=== PATIENT | female | born 1995 | race Hispanic/Latino ===

== ENCOUNTER → 2020-12-05 09:16 | Outpatient (CLI) | payer OTHER, SELFPAY ==
[2020-12-05 10:33] LABS: Appearance Urine UA SL CLOUDY; Bilirubin Urine UA NEGATIVE (NEGATIVE); Color Urine UA YELLOW; Glucose Urine UA NEGATIVE (Negative); Ketones Urine UA NEGATIVE (NEGATIVE); Leukocyte Esterase Urine UA TRACE (NEGATIVE); Nitrite Urine UA NEGATIVE (Negative); Occult Blood Urine UA NEGATIVE (Negative); Protein Urine UA NEGATIVE (Negative); Specific Gravity Urine UA >=1.030 (1.000-1.035); Urobilinogen Urine UA 0.2 E.U./dL (0.2)
[2020-12-05 10:39] LABS: Add Manual Diff / Slide Review NO; Basophils Absolute Auto 0 /uL (0-100); Basophils Percent Auto 0.4 % (0-2); Eosinophils Absolute Auto 100 /uL (0-450); Eosinophils Percent Auto 0.7 % (2-4); Hemoglobin 13.2 g/dL (12.0-16.0); Lymphocytes Absolute Auto 2300 /uL (1100-4500); Mean Corpuscular HGB Conc 33.1 % (30-36); Mean Corpuscular Hemoglobin 29.8 PG (26-34); Monocytes Absolute Auto 500 /uL (0-900); Monocytes Percent Auto 5.4 % (3-14); Neutrophils Absolute Auto 5700 /uL (1500-7000); Neutrophils Percent Auto 66.5 % (50-75); Platelet Count 377 X10^3/uL (150-400); Red Blood Cell Count 4.45 X10^6/uL (4.0-5.2); Red Cell Distribution Width 13.1 % (11.6-14.8); White Blood Cell Count 8.6 X10^3/uL (4.5-11.0)
[2020-12-05 10:49] LABS: Bacteria Urine Moderate (10-30); RBC Urine 0-1/HPF (0-5/HPF); Squamous Epithelial Cell Urine 1-5 /HPF (0-5/HPF); WBC Urine 1-5/HPF (0-5/HPF)
[2020-12-05 10:50] LABS: Mucus Urine 2+ (Negative)
[2020-12-05 11:13] LABS: Hepatitis B Surface Antigen NEGATIVE s/c (NEGATIVE); Rubella Antibody IgG 4.4 IU/mL (>15)
[2020-12-05 11:28] LABS: HIV 1 & 2 Ab/Ag 4th Gen Combo NEGATIVE (NEGATIVE); Hep C Virus Ab w/Reflex Quant NEGATIVE s/c (NEGATIVE)
[2020-12-06 07:47] LABS: RPR Screen Non Reactive (Non Reactive)
[2020-12-06 08:12] LABS: Varicella IgG Antibody <135 index (Immune >165)
== END ==
PROVIDERS: PCP Family Medicine; Referring Provider Family Medicine; Visit Provider Family Medicine
DX: Z34.01 Encounter for supervision of normal first pregnancy, first trimester (principal)
CPT/HCPCS: 36415; 80055; 81003; 81015; 86787; 86803; 86850; 86900; 86901; 87086; 87389

== ENCOUNTER → 2020-12-16 13:49 | Outpatient (CLI) | payer OTHER, SELFPAY ==
--- NOTE | 2020-12-16 13:50 | DI.RAD.S_ITS ---
PROCEDURE: XR WRIST LT MIN 3V INDICATIONS: pain and swelling TECHNIQUE: 4 views of the wrist were acquired. COMPARISON: None. FINDINGS: Bones: No fractures or dislocations. No suspicious bony lesions. Scaphoid view: No trauma Soft tissues: No suspicious soft tissue calcifications. IMPRESSION: No trauma found. Source of pain and swelling is not seen. Dictated by: Darell Worrell M.D. on 12/16/2020 at 15:30 Approved by: Darell Worrell M.D. on 12/16/2020 at 15:31
== END ==
PROVIDERS: PCP Family Medicine; Referring Provider Family Medicine; Visit Provider Family Medicine
DX: M25.9 Joint disorder, unspecified (principal); M25.532 Pain in left wrist; M25.432 Effusion, left wrist
CPT/HCPCS: 73110

== ENCOUNTER → 2021-02-27 09:25 | Outpatient (CLI) | payer OTHER, SELFPAY ==
[2021-03-02 17:07] LABS: AFP, Serum 39.3 ng/mL (.); Calc Gestational Age Ultrasound (.); Estriol, Free 2.28 ng/mL (.); Inhibin A, Dimeric 93.85 pg/mL (.); Inhibin A, MoM 0.61 (.); Maternal Ethnicity Other (.); Maternal Weight 154 lbs (.); Number of Fetuses No (.); OSBR Risk 1 IN 10000 (.); Results Report (.); Test Results *Screen Negative* (.); hCG, MoM 0.74 (.)
== END ==
PROVIDERS: PCP Family Medicine; Referring Provider Family Medicine; Visit Provider Family Medicine
DX: Z34.90 Encounter for supervision of normal pregnancy, unspecified, unspecified trimester (principal); Z3A.18 18 weeks gestation of pregnancy
CPT/HCPCS: 36415; 82105; 82677; 84702; 86336

== ENCOUNTER → 2021-03-13 10:40 | Outpatient (CLI) | payer OTHER, SELFPAY ==
--- NOTE | 2021-03-13 10:42 | DI.US.S_ITS ---
PROCEDURE: US OB >= 14 WEEKS FETUS INDICATIONS: ANATOMY OUTSIDE/PRIOR DATING DATA: Last menstrual period (LMP): Unknown . LMP-based estimated date of delivery (REKHA): Unknown . First dating scan (date and location): 03/13/2021 . Estimated date of delivery (REKHA) from first dating scan: 07/29/2021 . TECHNIQUE: Real-time scanning was performed of the fetus, with image documentation and biometric measurements. Endovaginal scanning: Non COMPARISON: None. FINDINGS: General: A single living intrauterine gestation is present. Presentation: Breech. Placenta: Placental position is anterior , without previa. Amniotic fluid index: 14.9 cm, normal range is 5-24 cm. heart rate: 158 beats per minute. Maternal cervical canal: 4.8 cm long. Normal lower limit is 2.5 cm. biometrics: Biparietal diameter: 4.8 cm, 20 week 3 day Head circumference: 17.7 cm, 20 week 1 day Abdominal circumference: 15.7 cm, 20 week 6 day Femur length: 3.2 cm, 19 week 6 day Estimated gestational age from initial scan: not applicable. Composite gestational age from present scan: 20 week 2 day Estimated weight and percentile: 352 g Measurement variability for biometric dating: +/- 7 days from 14 weeks to 15 weeks 6 days gestation, +/- 10 days from 16 weeks to 21 weeks 6 days gestation, +/- 2 weeks from 22 weeks to 27 weeks 6 days gestation, +/- 3 weeks for 28 weeks gestation or later. weight reference: 4500 g or EFW >90/95% is considered macrosomia or large for gestational age. EFW <10% is small for gestational age. EFW 5% or less is considered intra-uterine growth restriction. Anatomic survey: Neuro: Ventricles are non-dilated at less than 10 mm. Cisterna magna is normal at 3-11 mm. Cerebellum is normal in size and morphology. Nuchal skin fold: Normal at less than 6 mm between 14-21 weeks gestational age. Face: Nose and lips, facial profile are normal. Spine: No evidence for spina bifida. Sacrum is not well visualized Heart: 4-chambered heart is present, with normal ventricular outflow tracts. Diaphragm: Diaphragm is intact. Stomach: Left-sided stomach is present. Kidneys: No hydronephrosis. Normal is less than 5 mm in 2nd trimester, less than 7 mm in 3rd trimester. Cord: 3-vessel cord has orthotopic insertion. Bladder: Normal in size. Extremities: All 4 extremities identified. IMPRESSION: Single live intrauterine in breech presentation corresponding with a 20 week 2 day gestation by ultrasound Sacrum is not well visualized due to positioning. Attention to the sacrum will be given on follow-up scans. Approved by: Obey Issa M.D. on 03/13/2021 at 12:43
== END ==
PROVIDERS: PCP Family Medicine; Referring Provider Family Medicine; Visit Provider Family Medicine
DX: Z34.92 Encounter for supervision of normal pregnancy, unspecified, second trimester (principal); Z3A.20 20 weeks gestation of pregnancy
CPT/HCPCS: 76811

== ENCOUNTER → 2021-04-06 10:40 | Outpatient (CLI) | payer OTHER, SELFPAY ==
--- NOTE | 2021-04-06 10:41 | DI.US.S_ITS ---
PROCEDURE: US OB FOLLOW UP INDICATIONS: RE-EVALUATE SACRAL SPINE OUTSIDE/PRIOR DATING DATA: First dating scan (date and location): 03/13/2021 . Estimated date of delivery (REKHA) from first dating scan: 07/29/2021 . TECHNIQUE: Real-time scanning was performed of the fetus, with image documentation and biometric measurements. Endovaginal scanning: No COMPARISON: [facility], OB >= 14 WEEKS FETUS, 03/13/2021, 10:50. FINDINGS: General: A single living intrauterine gestation is present. Presentation: Vertex. Placenta: Placental position is anterior , without previa. Amniotic fluid index: 16.2 cm, normal range is 5-24 cm. heart rate: 169 beats per minute. Maternal cervical canal: 3.7 cm long. Normal lower limit is 2.5 cm. Normal sacrum. IMPRESSION: Single living IUP redemonstrated demonstrating normal appearance of the sacrum. Dictated by: Ryley Whalen [place] Interpreted: Felecia Valle MD on 04/06/2021 at 11:28 Transcribed by: KARLOS on 04/06/2021 at 11:29 Approved by: Felecia Valle M.D. on 04/06/2021 at 12:39
== END ==
PROVIDERS: PCP Family Medicine; Referring Provider Family Medicine; Visit Provider Family Medicine
DX: Z34.90 Encounter for supervision of normal pregnancy, unspecified, unspecified trimester (principal)
CPT/HCPCS: 76816

== ENCOUNTER → 2021-05-12 08:12 | Outpatient (CLI) | payer OTHER, SELFPAY ==
[2021-05-12 09:56] LABS: Add Manual Diff / Slide Review NO; Basophils Absolute Auto 0 /uL (0-100); Basophils Percent Auto 0.1 % (0-2); Eosinophils Absolute Auto 200 /uL (0-450); Eosinophils Percent Auto 1.8 % (2-4); Hematocrit 30.4 % (36-46); Lymphocytes Absolute Auto 1500 /uL (1100-4500); Lymphocytes Percent Auto 15.9 % (25-40); Mean Corpuscular Hemoglobin 29.2 PG (26-34); Mean Corpuscular Volume 88.4 fL (80-100); Monocytes Absolute Auto 500 /uL (0-900); Neutrophils Absolute Auto 7200 /uL (1500-7000); Neutrophils Percent Auto 77.2 % (50-75); Platelet Count 310 X10^3/uL (150-400); Red Blood Cell Count 3.43 X10^6/uL (4.0-5.2); Red Cell Distribution Width 13.6 % (11.6-14.8); White Blood Cell Count 9.4 X10^3/uL (4.5-11.0)
[2021-05-12 10:12] LABS: GTT (PREG) 1 Hour PP 50gm Dose 138 mg/dL (76-139)
== END ==
PROVIDERS: PCP Family Medicine; Referring Provider Family Medicine; Visit Provider Family Medicine
DX: Z34.90 Encounter for supervision of normal pregnancy, unspecified, unspecified trimester (principal); Z3A.24 24 weeks gestation of pregnancy
CPT/HCPCS: 36415; 82950; 85025

== ENCOUNTER → 2021-07-03 09:01 | Outpatient (CLI) | payer OTHER, SELFPAY ==
[2021-07-05 14:51] LABS: Strep Grp B PCR NEG for Grp B Strep
== END ==
PROVIDERS: PCP Family Medicine; Visit Provider Family Medicine
DX: Z34.90 Encounter for supervision of normal pregnancy, unspecified, unspecified trimester (principal); Z3A.36 36 weeks gestation of pregnancy
CPT/HCPCS: 87653

== ENCOUNTER 2021-07-11 22:34 | Outpatient (CLI) | payer OTHER, SELFPAY ==
--- NOTE | 2021-07-12 13:32 | P.TNLD_ITS ---
Visit Information Visit Information Date of evaluation: 07/11/21 Primary OB Provider: Bri Angel On-call OB Provider: Belen Kline Reason for Evaluation: Yes rule out labor Vital Signs Vital Signs: BP 113/73, P 106, T 37.1 [facility] Medical History (Updated 07/12/21 @ 13:37 by Belen Kline MD) Bunion of great toe of left foot Bunion of great toe of right foot Cystic disease of breast Family history of diabetes mellitus in father Migraine Ovarian cyst (~2016) Vitiligo Surgical History (Updated 11/26/20 @ 10:58 by Tea Otero, RN) H/O breast biopsy (~2012) S/P breast biopsy (~2014) S/P bunionectomy (~2010) S/P bunionectomy (~2011) S/P bunionectomy (~2013) S/P laparoscopy (~2016) [place] teeth extracted (~2008) Family History (Updated 11/26/20 @ 11:24 by Tea Otero, RN) Mother Cystic disease of breast Hypertension Father Diabetes mellitus Type 1 diabetes Grandmother Cancer Breast cancer Grandfather Cancer Lung cancer Smoker Grandmother Diabetes mellitus Grandfather Family estrangement Sister Learning disabilities Family/Other Cancer Breast cancer Social History marital status: household members: spouse lives independently: Yes pets and animals: Yes (X 1 dog) education level: college (X 1 year of College in [place] : [employer]) occupational status: employed current occupational exposures/hazards: Yes Previous occupational history: [employer] special ha needs: No Smoking Status: Never smoker second hand exposure: No alcohol intake: former (pre- : on occasion) substance use type: does not use Type(s) of exercise: walking Review of Systems Review of Systems Narrative: Pt. c/o contractions, GFM, no leakage of fluid, no S/S preeclampsia Evaluation Evaluation Baseline heart rate: 145 Variability: Moderate (11-25) monitor accelerations: Present Monitor Decelerations: Absent Contraction Frequency (minutes): 5 Uterine Contraction Intensity: Mild Category of Tracing: Reactive Status: Category l Cervical dilation (cm): 1 Cervical effacement (%): 50 station: -3 Diagnosis, Plan/Disposition Final Diagnosis (1) False labor after 37 completed weeks of gestation: Status: Acute Plan/Disposition Plan: Pt sent home. Precautions for return reviewed OB Disposition: home
== END 2021-07-12 00:06 | disposition home or self-care (01) ==
LOC: LABOR 22:40 → OB 07-13 09:46
PROVIDERS: PCP Family Medicine; Referring Provider Specialist; Visit Provider Specialist
DX: O47.1 False labor at or after 37 completed weeks of gestation (principal); Z3A.37 37 weeks gestation of pregnancy
CPT/HCPCS: 59025; G0378; G0379

== ENCOUNTER 2021-07-30 10:01 | Inpatient (IN) | payer OTHER, SELFPAY ==
--- NOTE | 2021-07-30 10:36 | PM.OBHP.IH.1 ---
OB HPI Date/Time Date of admission: 07/30/21 Date Patient Seen: 07/30/21 Time Patient Seen: 10:36 History of Present Condition Chief complaint: INDUCTION REKHA Calculator Estimated Delivery Date Method Current WG Current Estimate 07/30/21 Ultrasound #1 40w 0d Other Estimates 07/16/21 LMP (Certain) 42w 0d Estimated Gestational Age (weeks): 40w0d : 1 Para: 0 Narrative: Pt is a 25yo at 40w0d here for elective IOL. Pt has been having regular contractions at home. She denies any vaginal bleeding or LOF. She is feeling her baby move regularly. The pt has had no complications with her . care: good care, initiated at week # and pounds weight gain Dating criteria OB: based on 1st trimester US only Ultrasounds: normal 1st trimester US and normal mid trimester US Obstetrical complications: none Medical complications OB: none Indications Indication for induction OB: maternal discomfort Preadmission Labs Last OB Lab Results: Blood Type O Positive 07/30/21 10:07/30/21 Antibody Screen Negative 07/30/21 10:07/30/21 Hematocrit 33.0 % (36-46) L 07/30/21 10:09 07/30/21 Hemoglobin 10.8 g/dL (12.0-16.0) L 07/30/21 10:09 07/30/21 Hepatitis B Surface Antigen Negative s/c (NEGATIVE) 12/05/20 09:25 12/05/20 Hepatitis C Antibody Negative s/c (NEGATIVE) 12/05/20 09:25 12/05/20 Rubella Antibody 4.4 IU/mL (>15) L 12/05/20 09:25 12/05/20 Varicella-Zoster IgG Antibody <135 index (Immune >165) L 12/05/20 09:25 12/05/20 Glucose 1 Hour 138 mg/dL (76-139) 05/12/21 09:25 05/12/21 Group B Streptococcus (PCR) Neg for grp b strep 07/03/21 09:01 07/03/21 -: Urine: negative Genetic Screens: Quad screen: Normal External Labs -: Urine: negative Evaluation Evaluation Baseline heart rate: 130 Variability: Moderate (11-25) monitor accelerations: Present Monitor Decelerations: Absent Contraction Frequency (minutes): 6 Status: Category l Dilation (cm): 3 Effacement (%): 90 Dilation: 3-4 cm Effacement: >/=80% station: -1 Position of cervix: mid Consistency: soft Dickson score: 10 PFSH Medical History (Updated 07/15/21 @ 16:30 by Bri Angel MD) Bunion of great toe of left foot Bunion of great toe of right foot Cystic disease of breast Family history of diabetes mellitus in father Migraine Ovarian cyst (~2016) Vitiligo Surgical History (Updated 11/26/20 @ 10:58 by Tea Otero RN) H/O breast biopsy (~2012) S/P breast biopsy (~2014) S/P bunionectomy (~2010) S/P bunionectomy (~2011) S/P bunionectomy (~2013) S/P laparoscopy (~2016) [place] teeth extracted (~2008) Family History (Updated 11/26/20 @ 11:24 by Tea Otero RN) Mother Cystic disease of breast Hypertension Father Diabetes mellitus Type 1 diabetes Grandmother Cancer Breast cancer Grandfather Cancer Lung cancer Smoker Grandmother Diabetes mellitus Grandfather Family estrangement Sister Learning disabilities Family/Other Cancer Breast cancer Social History marital status: household members: spouse lives independently: Yes pets and animals: Yes (X 1 dog) education level: college (X 1 year of College in [place] : [employer]) occupational status: employed current occupational exposures/hazards: Yes Previous occupational history: [employer]; [employer] special ha needs: No Smoking Status: Former smoker second hand exposure: No alcohol intake: former (pre- : on occasion) substance use type: does not use Type(s) of exercise: walking Meds Home Medications and Allergies Home Medications Medication Instructions Recorded Confirmed Type prenat.vits,patricia,fqu-jllj-jnkyw 1 tab PO DAILY 11/26/20 01/02/21 History ondansetron 4 mg disintegrating 4 mg PO Q8H PRN #30 tab 06/05/21 06/05/21 Rx tablet Allergies Allergy/AdvReac Type Severity Reaction Status Date / Time No Known Drug Allergies Allergy Verified 01/02/21 08:24 OB Exam Narrative Exam Narrative: Gen: NAD, sitting comfortably in bed, appears well CV: RRR, no murmurs Resp: clear to auscultation bilaterally Abd: soft, nontender, gravid Ext: trace edema Objective Labs Result Diagrams: 07/30/21 10:09 Assessment and Plan Assessment and Plan Assessment and Plan narrative: 25yo at 40w0d here for elective IOL. uncomplicated. GBS negative, Rh positive. - Expectant management, anticipate - FHT reassuring - GBS negative, no prophylaxis indicated - Epidural for pain control when desired - Start pitocin, titrate as tolerated
[2021-07-30 10:59] LABS: Add Manual Diff / Slide Review NO; Basophils Absolute Auto 100 /uL (0-100); Basophils Percent Auto 0.8 % (0-2); Eosinophils Absolute Auto 100 /uL (0-450); Eosinophils Percent Auto 0.5 % (2-4); Hemoglobin 10.8 g/dL (12.0-16.0); Lymphocytes Absolute Auto 1700 /uL (1100-4500); Lymphocytes Percent Auto 16.7 % (25-40); Mean Corpuscular HGB Conc 32.6 % (30-36); Mean Corpuscular Hemoglobin 28.3 PG (26-34); Mean Corpuscular Volume 86.7 fL (80-100); Monocytes Absolute Auto 600 /uL (0-900); Monocytes Percent Auto 6.3 % (3-14); Neutrophils Absolute Auto 7700 /uL (1500-7000); Neutrophils Percent Auto 75.7 % (50-75); Platelet Count 292 X10^3/uL (150-400); Red Blood Cell Count 3.81 X10^6/uL (4.0-5.2); Red Cell Distribution Width 15.7 % (11.6-14.8); White Blood Cell Count 10.2 X10^3/uL (4.5-11.0)
[2021-07-30] MEDS: LACTATED RINGERS 1,000 ML 100 ML IV ×2 (11:02→13:49)
[2021-07-30] MEDS: OXYTOCIN PREMIX 30 UNIT/500 ML PLAST..BAG IV (11:03)
[2021-07-30 11:13] LABS: COVID19 -Nasal RAPID Negative (Negative)
[2021-07-30 11:26] VITALS: BP 126/63
[2021-07-30] MEDS: FENT 2MCG/ML BUPIV 0.125% EPI 200 MCG/100 ML PLAST..BAG 12 MCG EPIDURAL (13:49)
--- NOTE | 2021-07-30 16:28 | P.PCNOB_ITS ---
Labor & Delivery Delivery date: 07/30/21 Intrapartal Events: None Cervical ripening method: none Induction method: per pitocin protocol Delivery augmentation: rupture of membranes Delivery monitor: external FHT Route of delivery: Episiotomy description: None L&D Laceration Description: None Estimated blood loss (mL): 50 Anesthesia Type: Epidural Complications: None Narrative: at 40w0d presented for elective IOL and was admitted to Labor and Delivery. The patient progressed through the 1st stage over 1.5 hours. She was started on pitocin for induction. Pain was controlled with an epidural. AROM was performed with production of meconium-stained fluid. The patient progressed through the 2nd stage over 1 hours and delivered a viable male with APGARs 9/9 at 16:02 via without complications. The baby cried spontaneously immediately after . The cord was clamped and cut after it stopped pulsating. The perineum and vagina were inspected with no lacerations. PREPROCEDURE DIAGNOSIS: Intrauterine at 40w0d GBS negative RH positive Meconium stained amniotic fluid POSTPROCEDURE DIAGNOSIS: Intrauterine at 40w0d, delivered Same as preprocedure [place] Baby 1: Infant gender: Male Presentation: vertex Position: Left Occiput Anterior Placenta delivery description: Spontaneous Cord Vessel Description: 3 Vessels score (1 min): 9 score (5 min): 9 weight: 6 lb 10.069 oz Plan for aftercare: Routine care
[2021-07-30] MEDS: IBUPROFEN 600 MG TABLET PO (21:54)
[2021-07-30] MEDS: ACETAMINOPHEN 325 MG TABLET 650 MG PO (21:54)
[2021-07-30] MEDS: LANOLIN OINT 7 GM 1 APPLIC TOP (21:56)
[2021-07-31] MEDS: DOCUSATE 100 MG CAPSULE PO (09:20)
[2021-07-31] MEDS: PRENATAL VIT,CALC/IRON/FOLIC 1 TABLET 1 TAB PO (09:20)
[2021-07-31] MEDS: OXYCODONE IR 5 MG TABLET PO ×2 (09:20→20:24)
[2021-07-31] MEDS: FERROUS SULFATE 325 MG TABLET PO (09:21)
[2021-07-31] MEDS: MAGNESIUM HYDROXIDE 30 ML UDC PO (11:56)
[2021-07-31] MEDS: IBUPROFEN 600 MG TABLET PO ×2 (13:47→20:24)
[2021-07-31] MEDS: ACETAMINOPHEN 325 MG TABLET 650 MG PO ×2 (13:48→20:24)
[2021-08-01] MEDS: ACETAMINOPHEN 325 MG TABLET 650 MG PO (03:57)
[2021-08-01] MEDS: OXYCODONE IR 5 MG TABLET PO (03:57)
[2021-08-01] MEDS: IBUPROFEN 600 MG TABLET PO (03:57)
--- NOTE | 2021-08-01 09:10 | PM.OBPN.1 ---
Subjective - OB Subjective Date Patient Seen: 07/31/21 Time Patient Seen: 07:50 Interval history: The pt reports that she is having increased perineal discomfort and frontal headache this morning. No vision changes, RUQ pain, or increased swelling. Her lochia is decreasing appropriately. She has voided, but is not yet passing flatus. Exam Narrative Exam Narrative: Gen: NAD, sitting comfortably in bed, appears well CV: RRR, no murmurs Resp: clear to auscultation bilaterally Abd: soft, slightly distended, normoactive bowel sounds, fundus firm and below umbilicus, nontender Ext: no edema Objective Labs Result Diagrams: 07/30/21 10:09 Assessment & Plan Plan Comments: 25yo PPD #1 s/p without complications. Pt doing well overall. - Normal care - Encouraged ambulation - support Time Spent With Patient Time: Total time spent is greater than 50% in coordination of care (as documented) at patient's floor/unit and/or counseling patient: Time with patient: 15-24 minutes
--- NOTE | 2021-08-01 09:10 | PM.OBDS.1 ---
Discharge Providers Provider Date of admission: 07/30/21 10:01 Discharge Date: 08/01/21 Primary care physician: Damon Wagoner DO Consults: 07/31/21 16:31 Consult to Still Photographer Routine Comment: Discharge provider: Bri Angel MD Summary Hospital Course Date Patient Seen: 08/01/21 Time Patient Seen: 09:00 Diagnoses: 40w0d gestation Rh positive GBS negative Hospital Course: The pt presented for elective IOL. She was started on pitocin, and received an epidural for pain control. AROM was performed with production of meconium-stained fluid. She progressed to complete and had a spontaneous vaginal delivery of a viable baby boy on 07/30/21. , there were no complications. At the time of discharge she as voiding, ambulating, and passing flatus without difficulty. Her lochia was decreasing appropriately. She was with adequate latch with the nipple shield, and pumping as well. Her pain was well controlled. She will f/u in 6 weeks for check. She is undecided regarding contraception. Peripartum Data Delivery Method: Natural Vaginal Laceration Description: None Episiotomy description: None Procedures: Spontaneous vaginal delivery complications: none [place] 1: Gender: Male Disposition of : home Discharge Diagnosis (1) Spontaneous vaginal delivery: Status: Acute Status at Discharge Cognitive/behavioral status at discharge: oriented Functional status at discharge: independent ambulation Overall status at discharge: patient is progressing back to baseline Time Spent with Patient Time attestation: Total time spent providing and/or coordinating discharge services: Objective Labs Result Diagrams: 07/30/21 10:09 Exam Narrative Exam Narrative: Gen: NAD, sitting comfortably in bed, appears well CV: RRR, no murmurs Resp: clear to auscultation bilaterally Abd: soft, appropriately tender, fundus firm and below the umbilicus, nondistended Ext: no edema Discharge Plan Discharge Plan Patient Disposition: Home Discharge orders & Medications Prescriptions: New acetaminophen 325 mg Tablet 650 mg PO Q6HR PRN (Reason: Pain, Mild (1-3)) Qty: 30 0RF ferrous sulfate 325 mg (65 mg iron) Tablet 325 mg PO DAILY Qty: 30 0RF docusate sodium 100 mg Capsule 100 mg PO DAILY Qty: 30 0RF ibuprofen 600 mg Tablet 600 mg PO Q6HR PRN (Reason: Pain, Mild (1-3)) Qty: 30 0RF Continued prenat.vits,patricia,pfv-jyff-lqwmg Tablet 1 tab PO DAILY 0RF Discontinued ondansetron 4 mg tablet,disintegrating 4 mg PO Q8H PRN (Reason: nausea and vomiting) Qty: 30 2RF Follow up/Referrals: Bri Angel MD [Physician] - (Your 6 week follow up visit with Dr. Angel is scheduled for September 09 @11:00am.) Damon Wagoner DO [Primary Care Provider] - Diet/Activity/Treatments Diet: Diet as Tolerated and Regular Skin/Wound/Dressing Care Report to your healthcare provider any signs of infection, such as:: chills, fever, increased pain and unusual drainage Visit Report/Discharge Packet Instructions: DI for Labor and Delivery, Vaginal Stand Alone Forms: Discharge: Care Visit Report Forms: Patient Portal/API, Stroke Signs & Symptoms Discharge Data Primary Care Provider: Damon Wagoner Discharges patient from system. Discharge Date/Time: 08/01/21 10:30
[2021-08-01 10:02] VITALS: BP 126/63; PULSE 86; RESP 16; TEMP 36.2
[2021-08-01] MEDS: DOCUSATE 100 MG CAPSULE PO (10:21)
[2021-08-01] MEDS: FERROUS SULFATE 325 MG TABLET PO (10:21)
[2021-08-01] MEDS: MEASLES,MUMPS,RUBELLA VACC/PF 0.5 ML VIAL SUBCUT (10:42)
== END 2021-08-01 10:30 | disposition home or self-care (01) | DRG 807 ==
PROVIDERS: Admitting Provider Family Medicine; PCP Family Medicine; Referring Provider Family Medicine; Visit Provider Family Medicine
DX: O48.0 Post-term pregnancy (principal); Z37.0 Single live birth; Z3A.40 40 weeks gestation of pregnancy; O77.0 Labor and delivery complicated by meconium in amniotic fluid; Z20.822 Contact with and (suspected) exposure to COVID-19
CPT/HCPCS: 01967; 36415; 59050; 59400; 85025; 86850; 86900; 86901; 87635; C9803; G0379; J2590

== ENCOUNTER → 2022-02-23 11:57 | Outpatient (CLI) | payer OTHER, SELFPAY ==
[2022-02-23 14:16] LABS: COVID19 -Nasal RAPID Negative (Negative)
== END ==
PROVIDERS: PCP Family Medicine; Visit Provider Surgery
DX: Z20.822 Contact with and (suspected) exposure to COVID-19 (principal); Z01.812 Encounter for preprocedural laboratory examination
CPT/HCPCS: 87635; C9803

== ENCOUNTER 2022-02-24 07:28 | Day surgery (SDC) | payer OTHER, SELFPAY ==
[2022-02-23 08:00] VITALS: BMI 28.0
[2022-02-24] VITALS (8 sets, daily range): BP systolic 114–132; BP diastolic 76–90; PULSE 79–100; RESP 12–16; TEMP 36.6–37.2; O2SAT 97–100; BMI 28.0
[2022-02-24] MEDS: LACTATED RINGERS 1,000 ML 100 ML IV (08:16)
--- NOTE | 2022-02-24 08:58 | P.HP_ITS ---
History of Present Illness History of Present Illness Date Patient Seen: 02/24/22 Time Patient Seen: 08:58 Chief complaint: SDC Narrative: 26-year-old woman with a supra umbilical ventral hernia here for elective repair. No interval changes in health. Please refer to the H&P from December 2021 for further details. Patient History Medical History Anemia Bunion of great toe of left foot Bunion of great toe of right foot Cystic disease of breast Family history of diabetes mellitus in father Migraine Ovarian cyst (~2016) Spontaneous vaginal delivery Vitiligo Surgical History H/O breast biopsy (~2012) S/P breast biopsy (~2014) S/P bunionectomy (~2010) S/P bunionectomy (~2011) S/P bunionectomy (~2013) S/P laparoscopy (~2016) [place] teeth extracted (~2008) Family & Social History Family History Mother Cystic disease of breast Hypertension Father Diabetes mellitus Type 1 diabetes Grandmother Cancer Breast cancer Grandfather Cancer Lung cancer Smoker Grandmother Diabetes mellitus Grandfather Family estrangement Sister Learning disabilities Family/Other Cancer Breast cancer Social History: household members spouse lives independently Yes Tobacco & Substance use: Smoking Status Never smoker alcohol intake current alcohol intake frequency other Substance Use Type does not use Meds Home Medications and Allergies Home Medications Medication Instructions Recorded Confirmed Type Nexplanon See Rx Instructions .Route .COMPLEX 02/24/22 02/24/22 History Allergies Allergy/AdvReac Type Severity Reaction Status Date / Time No Known Drug Allergies Allergy Verified 02/24/22 07:26 Exam Vital Signs (past 8 hours): - 02/24/22 07:59 Temperature 99 F Pulse Rate 100 H Respiratory Rate 16 Blood Pressure 132/89 Pulse Oximetry 98 Oxygen Delivery Method Room Air Oxygen Delivery Method Room Air Narrative Exam Narrative: General adult woman alert oriented no acute distress Chest nonlabored respiration Abdomen supra umbilical ventral hernia marked with my initials. Approximately 4 cm maximal diameter. Assessment & Plan Assessment and plan (1) Ventral hernia: Qualifiers: Obstruction and gangrene presence: without obstruction or gangrene Qualified Code(s): K43.9 - Ventral hernia without obstruction or gangrene Status: Chronic Assessment & Plan narrative: 26-year-old woman with a symptomatic ventral hernia here for elective open hernia repair with mesh. Review of the operation was can not discussed with the patient at the bedside. Operative risks including bleeding, infection, recurren ce, damage to surrounding structures were discussed. Her questions have been answered she is in agreement with this plan. Time Spent With Patient Critical Care time: I spent a total of [] minutes of critical care time on this patient's care today; this time is exclusive of procedural time.
[2022-02-24] MEDS: CEFAZOLIN 2 GM IN 0.9 % NACL 100 ML IV (09:14)
[2022-02-24] MEDS: BUPIVACAINE 0.25% (PF) VIAL 30 ML INJ (09:25)
--- NOTE | 2022-02-24 09:26 | SUR.OPER ---
Supine on padded OR bed, head on pillow, arms secured on padded arm boards at <90 degrees abduction, legs uncrossed, safety belt at thigh, tape over blanket over lower legs. Gel pad placed under bilateral heels.
--- NOTE | 2022-02-24 09:26 | SUR.OPER ---
Patients cell phone placed in patients belongings bag in pre-op area.
[2022-02-24] MEDS: ACETAMINOPHEN 325 MG TABLET 975 MG PO (10:25)
--- NOTE | 2022-02-24 10:26 | PM.OP.1 ---
Operative Date/Time/Diagnoses Date of procedure: 02/24/22 Time of procedure: 10:26 Pre-op diagnosis: Ventral hernia Post-op diagnosis: same Procedure & Clinicians Procedure: Open repair supraumbilical ventral hernia with mesh Same procedure as scheduled: Yes Indications: Symptomatic supra umbilical ventral hernia Surgeon: Zeferino Lorenzo Click Yes if Unassisted: Yes Anesthesia Type: General Operative Notes Findings: 6x4 cm fascial defect superior to the umbilicus containing omentum Specimen(s): none sent Estimated Blood Loss (mL): 20 Procedure in detail: Patient was brought to the operating room placed supine on the table. Bilateral lower extremity compression devices were applied. General anesthesia was induced and they were intubated with an endotracheal tube. They received 2 g of Ancef prior to skin incision. They were prepped and draped in sterile fashion. A time-out was performed. A supraumbilical midline incision was made. The subcutaneous tissues were divided. The ventral hernia was identified and the hernia sac was dissected off the midline fascia.. The hernia sac was sharply opened and contained viable omentum. The omentum was reduced back into the abdomen. Using blunt dissection I carefully carefully freed the hernia sac from beneath the fascia defect in order to accomodate the mesh. The fascia defect was 6cm in maximal diameter. A Bard Ventralex ST hernia patch 12 cm was inserted beneath the fascia defect in a sublay position with the anti-adhesive surface face down. The mesh was anchored in multiple locations using Ethibond suture to the fascia and the fascial defect was closed over the mesh. The subcutaneous tissues were reapproximated using 3 0 Vicry,l skin closed with 4 0 Monocryl followed by the application of Dermabond and Steri-Strips. Sponge instrument count at the end of the operation was correct. Patient tolerated procedure well was extubated and transferred to postoperative care unit in stable condition. Complications: none Post-operative Condition: stable Disposition: same day surgery
[2022-02-24] MEDS: ONDANSETRON 4 MG/2 ML INJ IV (10:27)
[2022-02-24] MEDS: HYDROMORPHONE 2 MG INJ IV (10:27)
[2022-02-24] MEDS: OXYCODONE IR 5 MG TABLET PO (11:09)
== END 2022-02-24 11:38 | disposition home or self-care (01) ==
PROVIDERS: PCP Family Medicine; Referring Provider Surgery; Visit Provider Surgery
PROC: (CPT 49560; principal; 2022-02-24 09:15)
DX: K43.9 Ventral hernia without obstruction or gangrene (principal)
CPT/HCPCS: 49560; 49568; 81025; 82962; J0690; J1100; J1170; J1885; J2250; J2405; J2704; J3010